=== PATIENT | female | born 1980 | race American Indian/Alaskan Native ===

== ENCOUNTER 2018-11-29 15:22 | Emergency (ER) | payer MEDICAID ==
[2018-11-29 15:22] VITALS: BMI 25.0
[2018-11-29 15:27] VITALS: TEMP 99
--- NOTE | 2018-11-29 15:51 | C.PDOC ---
History Of Present Illness Patient is a 38 yo F BIBA after being found unconscious at [facility]. Patient is comfortably snoring with nasal trumpet in R nostril and responsive to painful stimuli. Unable to illicit other history due to AMS. Time Seen by Provider: 11/29/18 15:48 Chief Complaint (Nursing): Substance Abuse History Per: EMS History/Exam Limitations: intoxication Current Symptoms Are (Timing): Still Present Past Medical History Reviewed: Historical Data, Nursing Documentation, Vital Signs Vital Signs: Last Vital Signs Temp 99 F 11/29/18 15:22 Pulse 107 H 11/29/18 15:22 Resp 17 11/29/18 15:22 BP 114/71 11/29/18 15:22 Pulse Ox 95 11/29/18 15:22 - Medical History PMH: Migraine, Seizures Denies: Depression - [facility] Procedures INJECT/INFUSE ELECTROLYT (01/13/14) INJECT/INFUSE NEC (11/08/14) Family History: States: Unknown Family Hx - Social History Hx Tobacco Use: Yes (2 per day) Hx Alcohol Use: Yes Hx Substance Use: (UNKNOWN) - Immunization History Hx Tetanus Toxoid Vaccination: (UNKNOWN) Hx Influenza Vaccination: (UNKNOWN) Hx Pneumococcal Vaccination: (UNKNOWN) Review Of Systems Review Of Systems: ROS cannot be obtained secondary to pt's inabilty to answer questions. Physical Exam - Physical Exam Appears: No Acute Distress (smells of alcohol) Skin: Warm (flushed), Dry Head: Atraumatic, Normacephalic Eye(s): bilateral: Abnormal Pupil (bilateral constricted pupils) Nose: No Discharge (nasal trumpet in R), No Epistaxis Oral Mucosa: Dry, No Drooling Tongue: Normal Appearing Cardiovascular: Rhythm Regular (tachycardic), No Murmur Respiratory: Normal Breath Sounds, No Accessory Muscle Use Gastrointestinal/Abdominal: Bowel Sounds, Soft Extremity: Capillary Refill (<2 sec), No Swelling Pulses: Left Radial: Normal, Right Radial: Normal, Left Dorsalis Pedis: Normal, Right Dorsalis Pedis: Normal DTR: Bicep (R): 1+, Bicep (L): 1+, Knee (R): 1+, Knee (L): 1+ Neurological/Psych: No Oriented x3 (responsive to painful stimuli only) Pain Response: Withdraws With Pain ED Course And Treatment - Laboratory Results Result Diagrams: 11/29/18 16:19 11/29/18 16:19 O2 Sat by Pulse Oximetry: 95 Medical Decision Making Medical Decision Making: - labs - IM Narcan 2mg - UDS, Upreg, BAL 1610 Narcan given, no change 1800 re-eval, patient is still responsive only to pain. UDS + for PCP and cannabinoids 1914 Upon re-evaluation, patient has pulled out nasal trumpet. She is responding appropriately, opening her eyes to verbal stimuli, and answering questions in full sentences without difficulty. Clinically sober and asking for food. Denies tobacco, alcohol, illicit drugs. 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 MD/DO has examined the patient and agrees with the treatment plan.
[2018-11-29] MEDS ORDERED: Naloxone 0.4 mg/ml Inj (Adult) IM STA (15:56)
[2018-11-29] MEDS ORDERED: Naloxone 0.4 mg/ml Inj (Adult) ONE (16:09)
[2018-11-29 16:24] LABS: BASO % 0.6 % (0.0-2.0); EOS # 0.1 K/uL (0.0-0.7); EOS % 1.5 % (0.0-4.0); HEMOGLOBIN 12.9 g/dL (11.0-16.0); LYMPH # 2.2 K/uL (1.0-4.3); LYMPH % 43.1 % (20.0-40.0); MEAN CELL VOLUME 83.6 fL (81.0-99.0); MEAN CORPUSCULAR HEMOGLOBIN 26.9 pg (27.0-31.0); MEAN CORPUSCULAR HGB CONC 32.2 g/dL (33.0-37.0); MEAN PLATELET VOLUME 8.9 fL (7.2-11.7); MONO # 0.5 K/uL (0.0-0.8); MONO % 9.7 % (0.0-10.0); NEUT # 2.3 K/uL (1.8-7.0); NEUT % 45.1 % (50.0-75.0); RBC 4.78 Mil/uL (3.80-5.20); RED CELL DISTRIBUTION WIDTH 15.2 % (11.5-14.5)
[2018-11-29 16:34] LABS: ALB/GLOB RATIO 1.5 (1.0-2.1); ALBUMIN 4.2 g/dL (3.5-5.0); ALT/SGPT 18 U/L (9-52); AST/SGOT 29 U/L (14-36); BLOOD UREA NITROGEN 11 mg/dL (7-17); CALCIUM 9.7 mg/dl (8.6-10.4); GFR NON-AFRICAN AMERICAN > 60
[2018-11-29 17:16] LABS: BARBITURATES, UR NEGATIVE (NEGATIVE); BENZODIAZEPINES, UR NEGATIVE (NEGATIVE); OPIATES, UR NEGATIVE (NEGATIVE)
[2018-11-29 17:19] LABS: PHENCYCLIDINE, UR POSITIVE (NEGATIVE)
[2018-11-29 18:44] VITALS: BP 117/76; PULSE 82; RESP 18
[2018-11-29 19:17] VITALS: O2SAT 95
== END 2018-11-29 19:39 | disposition home or self-care (01) ==
LOC: C.ER 15:22
DX: F19.20 Other psychoactive substance dependence, uncomplicated (principal)
CPT/HCPCS: 80053; 80320; 80324; 80345; 80346; 80349; 80353; 80358; 80361; 82948; 83992; 84703; 85025; 96372; 99285; J2310